=== PATIENT | female | born 1965 | race Two or more races ===

== ENCOUNTER 2020-09-12 23:25 | Inpatient (IN) | payer MEDICAID ==
[~2020-09-12] VITALS: Ht 152.4 cm; Wt 47.2 kg
[2020-09-12 23:31] VITALS: BP 114/67
[2020-09-12 23:45] VITALS: BP 115/70
[2020-09-13] VITALS (101 sets, daily range): BP systolic 62–143; BP diastolic 35–91
[2020-09-13] MEDS ORDERED: NICARDIPINE 100 MG in SODIUM CHLORIDE 0.9% 60 ML IV PRN (00:15)
[2020-09-13] MEDS ORDERED: ACETAMINOPHEN 325MG TABLET PO PRN (00:30)
[2020-09-13] MEDS ORDERED: IPRATROPIUM/ALBUTEROL 0.5-3(2.5)MG/3ML NEB HHN PRN ×2 (00:30→01:30)
[2020-09-13] MEDS: DEXAMETHASONE 4MG/ML 1ML VIAL IV SCH ×5 (00:40→23:19)
[2020-09-13] MEDS: DEXT 5%/LACTATED RINGERS 1,000 ML IV SCH ×2 (01:00→17:54)
[2020-09-13 05:22] LABS: HEMATOCRIT. 39.3 % (36.0-48.0); HEMOGLOBIN. 12.8 g/dL (12.0-16.0); MEAN CORPUSCULAR HEMOGLOBIN 32.9 pg (28.0-32.0); MEAN CORPUSCULAR VOLUME 100.9 fL (81.0-99.0); MEAN PLATELET VOLUME 9.5 fl (7.4-10.4); PLATELET 345 x1000/uL (130-400); RED BLOOD CELL COUNT 3.89 mill/uL (4.2-5.4); RED CELL DISTRIBUTION WIDTH 13.2 % (11.6-14.6)
[2020-09-13 05:29] LABS: CHLORIDE 104 mEq/L (98-107)
[2020-09-13] MEDS: LEVOTHYROXINE SODIUM 50MCG TABLET PO SCH (06:29)
[2020-09-13] MEDS ORDERED: LEVETIRACETAM 500MG/5ML CUP PO SCH (09:00)
[2020-09-13] MEDS ORDERED: LEVETIRACETAM 500 MG in SODIUM CHLORIDE 0.9% 100 ML IV SCH (09:00)
[2020-09-13] MEDS: FISH OIL/OMEGA-3 FATTY ACIDS 1000MG CAPSULE PO SCH (09:00)
[2020-09-13] MEDS: FLUTICASONE PROPIONATE 50MCG/SPRAY BOTTLE BOTHNSTRLS SCH ×2 (10:16→21:35)
[2020-09-13] MEDS: LEVETIRACETAM 500MG PREMIX 100 ML IV SCH ×2 (10:16→21:35)
[2020-09-13 13:33] LABS: PLATELET ESTIMATE NORMAL
[2020-09-13] MEDS: ATORVASTATIN CALCIUM 40MG TABLET PO SCH (21:34)
[2020-09-14] VITALS (57 sets, daily range): BP systolic 83–132; BP diastolic 24–89
[2020-09-14] MEDS: DEXAMETHASONE 4MG/ML 1ML VIAL IV SCH ×3 (06:03→18:42)
[2020-09-14] MEDS: LEVOTHYROXINE SODIUM 50MCG TABLET PO SCH (06:03)
[2020-09-14] MEDS: LEVETIRACETAM 500MG PREMIX 100 ML IV SCH ×2 (09:17→20:39)
[2020-09-14] MEDS: FISH OIL/OMEGA-3 FATTY ACIDS 1000MG CAPSULE PO SCH (09:18)
[2020-09-14] MEDS: FLUTICASONE PROPIONATE 50MCG/SPRAY BOTTLE BOTHNSTRLS SCH ×2 (10:12→20:40)
[2020-09-14] MEDS: DEXT 5%/LACTATED RINGERS 1,000 ML IV SCH (10:15)
[2020-09-14 11:05] LABS: HEMATOCRIT. 35.9 % (36.0-48.0); HEMOGLOBIN. 12.2 g/dL (12.0-16.0); MEAN CORPUSCULAR HEMOGLOBIN 33.9 pg (28.0-32.0); PLATELET 307 x1000/uL (130-400); RED BLOOD CELL COUNT 3.59 mill/uL (4.2-5.4); RED CELL DISTRIBUTION WIDTH 12.9 % (11.6-14.6)
[2020-09-14 11:12] LABS: CHLORIDE 105 mEq/L (98-107)
[2020-09-14 13:11] LABS: PLATELET ESTIMATE NORMAL
[2020-09-14] MEDS: ATORVASTATIN CALCIUM 40MG TABLET PO SCH (20:39)
[2020-09-15] VITALS (19 sets, daily range): BP systolic 90–166; BP diastolic 40–86
[2020-09-15] MEDS: DEXAMETHASONE 4MG/ML 1ML VIAL IV SCH ×2 (01:14→06:02)
[2020-09-15] MEDS: DEXT 5%/LACTATED RINGERS 1,000 ML IV SCH ×2 (03:11→20:31)
[2020-09-15] MEDS: LEVOTHYROXINE SODIUM 50MCG TABLET PO SCH (06:02)
[2020-09-15] MEDS: LEVETIRACETAM 500MG PREMIX 100 ML IV SCH ×2 (09:53→20:30)
[2020-09-15] MEDS: FLUTICASONE PROPIONATE 50MCG/SPRAY BOTTLE BOTHNSTRLS SCH ×2 (09:53→20:30)
[2020-09-15] MEDS: FISH OIL/OMEGA-3 FATTY ACIDS 1000MG CAPSULE PO SCH (09:53)
[2020-09-15] MEDS: ATORVASTATIN CALCIUM 40MG TABLET PO SCH (20:30)
[2020-09-16] VITALS: BP 118/58
[2020-09-16 04:00] VITALS: BP 123/69
[2020-09-16] MEDS: LEVOTHYROXINE SODIUM 50MCG TABLET PO SCH (06:26)
[2020-09-16 08:00] VITALS: BP 106/63
[2020-09-16] MEDS: LEVETIRACETAM 500MG PREMIX 100 ML IV SCH ×2 (09:00→20:32)
[2020-09-16] MEDS: FLUTICASONE PROPIONATE 50MCG/SPRAY BOTTLE BOTHNSTRLS SCH (09:00)
[2020-09-16] MEDS: FISH OIL/OMEGA-3 FATTY ACIDS 1000MG CAPSULE PO SCH (09:00)
[2020-09-16 12:00] VITALS: BP 91/47
[2020-09-16] MEDS: DEXT 5%/LACTATED RINGERS 1,000 ML IV SCH (12:24)
[2020-09-16] MEDS: SERTRALINE HCL 50MG TABLET PO SCH (13:08)
[2020-09-16 16:00] VITALS: BP 97/53
[2020-09-16 20:00] VITALS: BP 106/58
[2020-09-16] MEDS: ATORVASTATIN CALCIUM 40MG TABLET PO SCH (20:32)
[2020-09-17] VITALS (7 sets, daily range): BP systolic 112–128; BP diastolic 57–72
[2020-09-17] MEDS: DEXT 5%/LACTATED RINGERS 1,000 ML IV SCH (05:00)
[2020-09-17] MEDS: LEVOTHYROXINE SODIUM 50MCG TABLET PO SCH (06:28)
[2020-09-17] MEDS: FISH OIL/OMEGA-3 FATTY ACIDS 1000MG CAPSULE PO SCH (08:22)
[2020-09-17] MEDS: SERTRALINE HCL 50MG TABLET PO SCH (08:22)
[2020-09-17] MEDS: LEVETIRACETAM 500MG PREMIX 100 ML IV SCH ×2 (08:22→20:23)
[2020-09-17] MEDS: ATORVASTATIN CALCIUM 40MG TABLET PO SCH (20:22)
[2020-09-18] MEDS ORDERED: LEVO50TA8 MT (17:12)
[2020-09-18] MEDS ORDERED: RIVA10TA PO (17:12)
[2020-09-18] MEDS ORDERED: FLUT1BLS8 IH (17:12)
== END 2020-09-17 21:59 | DRG 45 ==
LOC: MICUSO 23:25 → 6EST 09-15 16:00
PROVIDERS: ADMIT Family Medicine Adult Medicine; ATTEND Family Medicine Adult Medicine
PROC: 02HV33Z Insertion of Infusion Device into Superior Vena Cava, Percutaneous Approach (ICD-10-PCS; principal; 2020-09-15)
PROC: B548ZZA Ultrasonography of Superior Vena Cava, Guidance (ICD-10-PCS; 2020-09-15)
DX: I63.512 Cerebral infarction due to unspecified occlusion or stenosis of left middle cerebral artery (principal); F17.210 Nicotine dependence, cigarettes, uncomplicated; E03.9 Hypothyroidism, unspecified; K21.9 Gastro-esophageal reflux disease without esophagitis; J44.9 Chronic obstructive pulmonary disease, unspecified; R74.01 Elevation of levels of liver transaminase levels; I10 Essential (primary) hypertension; G81.91 Hemiplegia, unspecified affecting right dominant side; H53.461 Homonymous bilateral field defects, right side; Z20.822 Contact with and (suspected) exposure to COVID-19; R29.810 Facial weakness; R47.1 Dysarthria and anarthria; R13.10 Dysphagia, unspecified; R41.4 Neurologic neglect syndrome; R23.3 Spontaneous ecchymoses; R47.01 Aphasia; Z86.73 Personal history of transient ischemic attack (TIA), and cerebral infarction without residual deficits; Z88.0 Allergy status to penicillin
CPT/HCPCS: 36415; 71045; 76937; 80048; 85025; 87426; 92523; 92610; 93880; 97110; 97112; 97162; 97166; 97530; 97535; C1725; J1100; J1953; J7121